=== PATIENT | female | born 1985 | race Caucasian/White ===

== ENCOUNTER 2017-03-12 14:58 | Emergency (ER) | payer SELFPAY ==
[2017-03-12] MEDS ORDERED: KETOROLAC TROMETHAMINE 30 MG/ML VIAL IV ONE (15:20)
[2017-03-12 15:24] LABS: Hematocrit 42.7 % (37.0-47.0); Hemoglobin 14.9 gm/dL (12.5-16.0); Mean Cell Volume 87.1 fl (78-100); Mean Corpuscular Hemoglobin 30.4 pg (27-31); Mean Corpuscular Hgb Conc 34.9 g/dl (32-36); Mean Platelet Volume 10.7 fl (6.0-9.5); Neutrophil # 3.4 K/mm3 (1.3-6.0); Neutrophil % 53.4 % (42-75.0); Platelet Count 209 K/mm3 (150-450); Red Cell Distribution Width 12.8 % (11.5-14.0); White Blood Count 6.4 K/mm3 (4.0-10.5)
[2017-03-12] MEDS ORDERED: KETOROLAC TROMETHAMINE 30 MG/ML VIAL ONE (15:24)
[2017-03-12 15:40] LABS: ALT 52 U/L (19-67); AST 32 U/L (0-48); Alkaline Phosphatase * 110 U/L (50-170); Anion Gap 7.9 mmol/L (6.8-13.8); BUN/Creatinine Ratio 14.9 (9.0-21.6); Bilirubin, Total 0.9 mg/dL (0.0-1.1); Blood Urea Nitrogen 14 mg/dL (3-23); Ca. Corrected For Albumin 8.7 mg/dL (8.4-10.2); Carbon Dioxide 27.7 mmol/L (24-32.6); Chloride 104 mmol/L (97-106); Glucose * 97 mg/dL (70-110); Potassium 3.6 mmol/L (3.4-4.6); Sodium 136 mmol/L (132-142); Total Protein 8.1 gm/dL (6.2-8.2); Troponin I Less than 0.017 ng/ml (0.00-0.10)
--- NOTE | 2017-03-12 15:45 | ERNOTE ---
Chest Pain/Cardiac HPI Date of Service: 03/12/17 Chief Complaint: Chest Pain Time Seen by Provider: 03/12/17 15:09 Source: patient, RN notes reviewed Exam Limitations: no limitations Immunizations: IMMUNIZATION HX Immunizations Up to Date Yes History of Influenza Vaccine No Allergies/Adverse Reactions: Allergies sumatriptan [From Imitrex] Allergy (Verified 03/12/17 15:08) sumatriptan succinate [From Imitrex] Allergy (Verified 03/12/17 15:08) Home Medications: HOME MEDICATIONS NK [No Home Medication] 03/12/17 [Last Taken Unknown] Narrative: 32 year old female presents to the ED with chest pain that has been intermittent for 2 weeks. The pain is worse today. It is mostly in the right chest, but she also reports tenderness in her left breast. She has a history of colorectal cancer and is concerned that the cancer has returned in her lungs or breast, causing the pain. Timing: getting worse, intermittent Severity/Quality: aching Chest Pain Radiation: no radiation Activities at Onset: none Modifying Factors - Improves: Present: nothing. Absent: breathing, rest Modifying Factors - Worsens: Present: exercise Nitro Today/Relief: no nitro taken today Aspirin Treatment Today: no aspirin today Prior Chest Pain/Cardiac Workup: Reports: no prior cardiac workup. Denies: prior chest pain Prior Treatment: Denies: recently seen Review of Systems - Review of Systems Constitutional: Absent: recent illness, fever EYE: Present: no symptoms reported ENT: Absent: nose congestion, sore throat Respiratory: Absent: shortness of breath, cough Cardiology: Present: chest pain. Absent: palpitations, syncope, edema Gastrointestinal/Abdominal: Absent: nausea, vomiting, abdominal pain Genitourinary: Present: no symptoms reported Musculoskeletal: Absent: neck pain, joint pain, joint swelling Skin: Absent: rash, lesions Neurological: Absent: headache, dizziness/light-headedness Endocrine: Present: no symptoms reported Hematologic/Lymphatic: Absent: easy bruising, easy bleeding Psych: Absent: anxiety, depressed - Patient's Past Medical History Patient History - Medical: No pertinent hx Patient History - Cardiac/Respiratory: No pertinent hx Patient History - Cancer: Colon Patient History - Surgical Procedures: Colon Resection - with ileostomy and reversal, Other - vaginal surgery Patient History - Other: None - Social History Living Situations: home Abuse History: No History of abuse Psych History: No pertinent hx Smoking Status: Current every day smoker Cigarettes Packs Per Day: 1 Alcohol Use: none Drug Use: none - Immunizations Immunizations Up to Date: Yes History of Influenza Vaccine: No Physical Exam - Physical Exam General Appearance: Present: wd/wn, alert, no apparent distress Head Exam: Present: normal inspection Eye Exam: Normal inspection: bilateral Neck: Present: normal inspection, nontender, supple Respiratory: Present: no respiratory distress, normal breath sounds, no accessory muscle use, chest nontender, lungs clear Cardiovascular/Chest: Present: regular rate, rhythm, no murmur, normal peripheral pulses Gastrointestinal/Abdominal: Present: nontender, nondistended, soft Extremity Exam: Present: normal inspection, no edema Neurological Exam: Present: alert, oriented, normal mood/affect Skin Exam: Present: normal color, warm/dry ED Progress - Results and Orders Patient's Lab Results:: I have reviewed the patient's lab results. - Vital Signs Patient's Vital Signs:: I have reviewed the patient's vital signs. Vital Signs: Vital Signs 03/12/17 03/12/17 03/12/17 15:04 15:28 15:29 Temperature 36.6 C Pulse Rate 57 L 50 L 56 L Respiratory 12 13 Rate Blood Pressure 133/72 127/86 O2 Sat by Pulse 100 100 Oximetry - EKG EKG: other - Sinus bárbara EKG read: Reviewed by me - X-Ray X-Ray #1 X-Ray: chest Interpretation: Interp. by me X-ray Comments: No acute cardiopulmonary process noted - Progress/Reassessment Chief Complaint: Chest Pain Departure Clinical Impression: Chest wall pain - Departure Disposition: Home Follow Up Needed Condition: Good Instructions: Chest Wall Pain, [id number] Additional Instructions: Ibuprofen for pain Follow up with your doctor if breast pain continues Stop smoking
[2017-03-12 16:12] VITALS: BP 117/56
== END 2017-03-12 16:37 | disposition home or self-care (01) ==
LOC: ER 14:58
DX: R07.89 Other chest pain (principal); F17.210 Nicotine dependence, cigarettes, uncomplicated

== ENCOUNTER 2018-09-08 12:36 | Inpatient (IN) ==
--- NOTE | 2018-09-08 12:58 | ERNOTE ---
Abdominal HPI - Narrative Date of Service: 09/08/18 - General Chief Complaint: Abdominal Pain Time Seen by Provider: 09/08/18 12:57 Source: patient Exam Limitations: no limitations - Immun/Allergies/Home Medications Immunizatons: IMMUNIZATION HX Immunizations Up to Date Yes History of Influenza Vaccine No Hx Pneumococcal Vaccination No Allergies/Adverse Reactions: Allergies sumatriptan succinate [From Imitrex] Allergy (Severe, Verified 09/08/18 12:55) Swelling of Tongue Home Medications: HOME MEDICATIONS Albuterol Sulfate [Proair Hfa] 1 - 2 puff INHALATION Q4H PRN #1 inhaler 02/04/18 [Last Taken Unknown] - Pain Score Pain Score #1 Pain Score: 10 Abdominal Pain Onset Location: periumbilical, generalized abdomen Pain Radiation: back - History of Present Illness Narrative: The patient is a 33 year old female who presents for abdominal pain which has been present since 0500 this am. There are associated symptoms of nausea with vomiting. The patient reports generalized abdominal pain, 10/10. There are no alleviating factors. There are no aggravating factors. Previous treatments have included: none. The past medical history includes: colon and rectal ca. Patient reports last colonoscopy 3 years ago. The social history is positive for current tobacco use. The patient has had no ill contacts. Patient states this am began with abdominal pain and then had nausea with vomiting, several episodes. Review of Systems - Review of Systems Constitutional: Present: chills, fatigue. Absent: fever EYE: Present: no symptoms reported ENT: Present: no symptoms reported. Absent: ear pain, nasal drainage, sore throat Respiratory: Present: no symptoms reported. Absent: shortness of breath, cough Cardiology: Present: no symptoms reported. Absent: chest pain Gastrointestinal/Abdominal: Present: nausea, vomiting, abdominal pain. Absent: diarrhea, constipation Genitourinary: Present: no symptoms reported. Absent: dysuria, decreased urinary output Musculoskeletal: Present: back pain Skin: Present: no symptoms reported. Absent: rash Neurological: Present: no symptoms reported All Other Systems: All systems neg except as marked Medical History (Updated 09/08/18 @ 12:56 by Sugar Schmidt RN) Carcinoma of colon with rectum Social History: Tobacco: Smoking Status: Current every day smoker Physical Exam - Physical Exam General Appearance: Present: wd/wn, alert, severe distress Head Exam: Present: normal inspection Eye Exam: Normal inspection: bilateral Neck: Present: normal inspection Respiratory: Present: no respiratory distress, normal breath sounds, no accessory muscle use, lungs clear Cardiovascular/Chest: Present: regular rate, rhythm, no murmur Gastrointestinal/Abdominal: Present: nondistended, soft, no organomegaly, tenderness - diffuse abdomen, abnormal bowel sounds - hyperactive diffuse, guarding - periumbilical and suprapubic Neurological Exam: Present: alert, oriented, normal mood/affect, no motor/senso ry deficits Skin Exam: Present: normal color, warm/dry Progress - Date and Time Seen: Date and Time: 09/08/18 17:25 Consult with , will review case and return call. Discussed results of testing with patient. Will await for for directed plan of care. Also reviewed with patient abnormal liver and pancreas lesions. Patient states will follow up with additional testing as needed. 09/08/18 18:13 present to evaluate patient. 09/08/18 19:40 After evaluation will admit for SBO. NG placement in ER and then to xray prior to floor admission. - Results and Orders Patient's Lab Results:: I have reviewed the patient's lab results. - Vital Signs Patient's Vital Signs:: I have reviewed the patient's vital signs. Vital Signs: Vital Signs 09/08/18 12:51 Temperature 35.8 C L Pulse Rate 70 Respiratory Rate 24 H Blood Pressure 123/91 H O2 Sat by Pulse Oximetry 99 - X-Ray X-Ray #1 X-Ray: abdomen Interpretation: Reviewed by me X-ray Comments: IMPRESSION: 1. NONSPECIFIC BOWEL GAS PATTERN Electronically signed by Loco Herrera M.D.. - CT/Ultrasound CT/Ultrasound Narrative: IMPRESSION: 1. CT findings suggestive of small bowel obstruction, with transition point at the distal segment near the terminal ileum. 2. No evidence for perforation or intra-abdominal/pelvic abscess. 3. Focal parenchymal prominence of the body of the pancreas, which is somewhat equivocal but consider further imaging evaluation by MRI. Correlate clinically for acute pancreatic process such as pancreatitis. There is a tiny peripheral hyperenhancing lesion at the right hepatic lobe, which can also be characterized by MRI of the abdomen without and with contrast, on a nonemergent basis. 4. Additional comments and details are as above. Ordering provider KG Camara was informed regarding the above results by telephone on 09/08/2018 5:18 PM. - Progress/Reassessment Chief Complaint: Abdominal Pain Departure Clinical Impression: Small bowel obstruction - Departure Disposition: Still a patient Condition: Fair
[2018-09-08] MEDS ORDERED: MORPHINE SULFATE 4 MG/ML SYRG IV ONE ×2 (13:08→17:43)
[2018-09-08] MEDS ORDERED: ONDANSETRON HCL/PF 2 MG/ML VIAL IV ONE ×2 (13:08→17:43)
[2018-09-08 13:22] LABS: Hematocrit 46.7 % (37.0-47.0); Hemoglobin 16.5 gm/dL (12.5-16.0); Mean Cell Volume 87.9 fl (78-100); Mean Corpuscular Hemoglobin 31.1 pg (27-31); Mean Corpuscular Hgb Conc 35.3 g/dl (32-36); Mean Platelet Volume 10.7 fl (8-12.5); Neutrophil # 11.3 K/mm3 (1.3-6.0); Neutrophil % 86.3 % (42-75.0); Platelet Count 248 K/mm3 (150-450); Red Blood Count 5.31 M/mm3 (4.2-5.4); Red Cell Distribution Width 12.8 % (11.5-14.0); White Blood Count 13.1 K/mm3 (4.0-10.5)
[2018-09-08 13:37] LABS: ALT 38 U/L (19-67); AST 20 U/L (0-48); Albumin * 4.2 gm/dl (3.4-5.0); Alkaline Phosphatase * 115 U/L (50-170); Amylase * 62 U/L (25-115); BUN/Creatinine Ratio 13.5 (9.0-21.6); Bilirubin, Total 0.8 mg/dL (0.0-1.1); Blood Urea Nitrogen 15 mg/dL (3-23); Ca. Corrected For Albumin 9.3 mg/dL (8.4-10.2); Calcium * 9.8 mg/dL (7.9-10.9); Carbon Dioxide 22.7 mmol/L (24-32.6); Chloride 103 mmol/L (97-106); Glucose * 117 mg/dL (70-110); Lipase 54 U/L (73-393); Potassium 3.7 mmol/L (3.4-4.6); Sodium 140 mmol/L (132-142); Total Protein 8.4 gm/dL (6.2-8.2)
[2018-09-08] MEDS ORDERED: NORMAL SALINE 1,000 ML IV PRN (13:40)
[2018-09-08] MEDS ORDERED: DIATRIZOATE MEGLUMINE, SODIUM 30 ML BTL PO ONE (13:50)
[2018-09-08 15:09] LABS: Urine Appearance Slightly Cloudy (CLEAR); Urine Bacteria TRACE; Urine Bilirubin Negative (NEGATIVE); Urine Blood Negative /ul (NEGATIVE); Urine Color Dark Yellow; Urine Ketone 5 mg/dL (NEGATIVE); Urine Nitrite Negative (NEGATIVE); Urine Protein Negative (NEGATIVE); Urine RBC None Seen /hpf (0-5); Urine Specific Gravity 1.015 SP.GR. (1.005-1.010); Urine Urobilinogen Normal (NORMAL); Urine WBC None Seen /hpf (0-5); Urine pH 8.5 pH (5.0-7.0)
[2018-09-08] MEDS ORDERED: ALBUTEROL SULFATE 200 PUFF INHALER IH PRN (19:29)
--- NOTE | 2018-09-08 20:02 | HP ---
Chief Complaint - Chief Complaint Date of Service: 09/08/18 Time of Service: 19:44 Chief Complaint: abdominal pain and vomiting History of Present Illness: She developed lower abdominal pain after eating a large amount of raw vegetables yesterday. The pain continued and today she vomited persistently at least 12 times prior to presenting to the emergency room. Initial abdominal x-rays were nonspecific and a CT scan was ordered. CT scan shows dilated small bowel with a transition point in the terminal ileum. There is solid material in the distal small bowel. 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 Initially she had neoadjuvant chemotherapy and radiation therapy followed by an attempted laparoscopic converted to open resection. There were anastomotic problems and the operation was converted to an open procedure. Postoperatively she had a stormy course. Her wound was packed open until it healed. She developed a rectovaginal fistula. She underwent 6 months of chemotherapy. In May 2012 she had a laparotomy with lysis of adhesions, takedown of colovaginal fistula, and redo of the coloanal anastomosis. She had an ileostomy placed which was then later reversed. She is done fairly well since that time. Her last recorded visit with oncology was in 2014. She has not had a follow-up colon exam. She does not remember her last pelvic exam. Medical History (Updated 09/08/18 @ 12:56 by Sugar Schmidt RN) Carcinoma of colon with rectum Social History: (Last Reviewed 09/08/18 @ 19:43 by David Blancas MD) Tobacco: Smoking Status: Current every day smoker Review Of Systems (GEN) - Review of Systems Generalized/Overall Review: Absent: Chills, Fever EENTM: Present: No Symptoms Reported Respiratory: Absent: Cough, Shortness of Breath Cardiac: Present: Other - She gets occasional pressure in the left chest but this lasts all day. She is apparently had a negative cardiac work-up. Absent: Palpitations Abdominal: Present: Vomiting, Abdominal Pain Genitourinary: Present: Nocturia - Gets up at least twice. She no longer menstruates after her radiation but does have occasional pink spotting. Absent: Burning, Frequency Musculoskeletal: Present: No Symptoms Reported Neurological: Present: No Symptoms Reported Skin: Present: Rash - Small area of rash left upper arm for the last several days Endocrine: Present: No Symptoms Reported Immunizations: IMMUNIZATION HX Immunizations Up to Date Yes History of Influenza Vaccine No Hx Pneumococcal Vaccination No Allergies/Adverse Reactions: Allergies Allergy/AdvReac Type Severity Reaction Status Date / Time sumatriptan succinate Allergy Severe Swelling Verified 09/08/18 12:55 [From Imitrex] of Tongue Home Medications: HOME MEDICATIONS Albuterol Sulfate [Proair Hfa] 1 - 2 puff INHALATION Q4H PRN #1 inhaler 02/04/18 [Last Taken Unknown] Exam - Exam Vital Signs: Vital Signs - Last Taken Temp 36.0 C 09/08/18 17:51 Pulse 58 L 09/08/18 17:51 Resp 18 09/08/18 17:51 BP 128/84 09/08/18 17:51 Pulse Ox 99 09/08/18 17:51 Constitutional: Present: Alert, Oriented x3, Cooperative, Well nourished, Mild distress ENT Exam: Present: normal ENT inspection, other - Tongue piercing, Eye Exam: bilateral eye: normal inspection Neck: Present: full range of motion, normal inspection Back Exam: Present: normal inspection Breasts: Present: Exam deferred Respiratory: Present: lungs clear Cardiovascular/Chest: Present: normal peripheral pulses, regular rate, rhythm, no murmur Abdomen: Present: no bowel sounds - Healed midline incision and right lower quadrant incision from her ileostomy. No obvious hernias. She is mildly tender diffusely but mostly in the lower midline. 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, normal cerebellar test, no motor/sensory deficits, alert Appearance: Present: appropriate appearance, appropriate insight, no memory impairment Eye contact: Present: cooperative, good eye contact, normal speech Thoughts: Present: normal thought pattern Diagnostic Studies: Abnormal Lab Results 09/08/18 09/08/18 Range/Units 13:15 13:15 WBC 13.1 H (4.0-10.5) K/mm3 Hgb 16.5 H (12.5-16.0) gm/dL MCH 31.1 H (27-31) pg Immature Gran # (Auto) 0.04 H (0.000-0.0310) K/mm3 Neutrophils % 86.3 H (42-75.0) % Lymphocytes % 9.4 L (20-51) % Neutrophils # 11.3 H (1.3-6.0) K/mm3 Lymphocytes # 1.23 L (1.5-3.5) k/mm3 Carbon Dioxide 22.7 L (24-32.6) mmol/L Anion Gap 18.0 H (6.8-13.8) mmol/L Random Glucose 117 H (70-110) mg/dL Total Protein 8.4 H (6.2-8.2) gm/dL Lipase 54 L (73-393) U/L Laboratory Results WBC 13.1 K/mm3 (4.0-10.5) H 09/08/18 13:15 RBC 5.31 M/mm3 (4.2-5.4) 09/08/18 13:15 Hgb 16.5 gm/dL (12.5-16.0) H 09/08/18 13:15 Hct 46.7 % (37.0-47.0) 09/08/18 13:15 MCV 87.9 fl (78-100) 09/08/18 13:15 MCH 31.1 pg (27-31) H 09/08/18 13:15 MCHC 35.3 g/dl (32-36) 09/08/18 13:15 RDW 12.8 % (11.5-14.0) 09/08/18 13:15 Plt Count 248 K/mm3 (150-450) 09/08/18 13:15 MPV 10.7 fl (8-12.5) 09/08/18 13:15 Immature Gran % (Auto) 0.30 % (0.001-0.429) 09/08/18 13:15 Immature Gran # (Auto) 0.04 K/mm3 (0.000-0.0310) H 09/08/18 13:15 86.3 % (42-75.0) H 09/08/18 13:15 9.4 % (20-51) L 09/08/18 13:15 3.4 % (0.0-9) 09/08/18 13:15 0.3 % (0.0-3.0) 09/08/18 13:15 0.3 % (0.0-1.0) 09/08/18 13:15 Nucleated RBC % 0.0 k/mm3 (0-1) 09/08/18 13:15 11.3 K/mm3 (1.3-6.0) H 09/08/18 13:15 1.23 k/mm3 (1.5-3.5) L 09/08/18 13:15 0.4 k/mm3 (0.0-1.0) 09/08/18 13:15 0.0 k/mm3 (0.0-0.7) 09/08/18 13:15 Absolute Basophils 0.0 k/mm3 (0.0-0.1) 09/08/18 13:15 Sodium 140 mmol/L (132-142) 09/08/18 13:15 140 mmol/L (130-142) 09/08/18 13:15 Potassium 3.7 mmol/L (3.4-4.6) 09/08/18 13:15 Chloride 103 mmol/L (97-106) 09/08/18 13:15 Carbon Dioxide 22.7 mmol/L (24-32.6) L 09/08/18 13:15 18.0 mmol/L (6.8-13.8) H 09/08/18 13:15 BUN 15 mg/dL (3-23) 09/08/18 13:15 1.11 mg/dL (0.4-1.4) 09/08/18 13:15 Est GFR (Non-Af Amer) 60 mL/min (60-130) 09/08/18 13:15 13.5 (9.0-21.6) 09/08/18 13:15 117 mg/dL (70-110) H 09/08/18 13:15 Calcium 9.8 mg/dL (7.9-10.9) 09/08/18 13:15 Calcium Adj for Albumin 9.3 mg/dL (8.4-10.2) 09/08/18 13:15 0.8 mg/dL (0.0-1.1) 09/08/18 13:15 AST 20 U/L (0-48) 09/08/18 13:15 ALT 38 U/L (19-67) 09/08/18 13:15 115 U/L (50-170) 09/08/18 13:15 C-Reactive Prot, Quant Less than 0.2 mg/dL (0.0-0.9) 09/08/18 13:15 8.4 gm/dL (6.2-8.2) H 09/08/18 13:15 4.2 gm/dl (3.4-5.0) 09/08/18 13:15 Amylase 62 U/L (25-115) 09/08/18 13:15 54 U/L (73-393) L 09/08/18 13:15 Dark yellow 09/08/18 14:55 Slightly cloudy (CLEAR) 09/08/18 14:55 8.5 pH (5.0-7.0) 09/08/18 14:55 Ur Specific [place] 1.015 SP.GR. (1.005-1.010) 09/08/18 14:55 Negative mg/dL (NEGATIVE) 09/08/18 14:55 Negative mg/dL (NEGATIVE) 09/08/18 14:55 5 mg/dL (NEGATIVE) 09/08/18 14:55 Negative /ul (NEGATIVE) 09/08/18 14:55 Negative (NEGATIVE) 09/08/18 14:55 Negative mg/dl (NEGATIVE) 09/08/18 14:55 Normal EU/dl (NORMAL) 09/08/18 14:55 Ur Leukocyte Esterase Negative /ul (NEGATIVE) 09/08/18 14:55 None seen /hpf (0-5) 09/08/18 14:55 None seen /hpf (0-5) 09/08/18 14:55 Ur Epithelial Cells 0-5 /hpf (0-5) 09/08/18 14:55 Trace (NONE) 09/08/18 14:55 No culture indicated 09/08/18 14:55 Urine HCG, Qual Negative (NEGATIVE) 09/08/18 14:[address] scan images and report were reviewed. There is a partial distal small bowel obstruction with a transition point in the right lower quadrant. Assessment/Plan - Assessment/Plan (1) Partial small bowel obstruction Assessment: Her previous surgeries and radiation therapy would predispose her to adhesions. There appears to be some solid material in the small bowel prior to the transition point which may be the vegetable she ate yesterday. A nonoperative trial of NG suction and IV hydration would be in order. SCDs and ambulation will be used for VTE prophylaxis. Medication is been ordered for pain and nausea. She will be reevaluated for passage of the contrast material in the morning. Problem: Acute
[2018-09-08] MEDS: HYDROmorphone HCL 1 MG/ML DISP.SYRIN IV PRN (20:47)
[2018-09-08] MEDS: ONDANSETRON HCL/PF 2 MG/ML VIAL IV PRN (20:49)
[2018-09-08] MEDS: DEXTROSE 5%-0.5 NORMAL SALINE 1,000 ML IV PRN (21:01)
[2018-09-08] MEDS: PANTOPRAZOLE SODIUM 40 MG in NORMAL SALINE 100 ML IV SCH (21:18)
[2018-09-09] MEDS: HYDROmorphone HCL 1 MG/ML DISP.SYRIN IV PRN ×4 (00:05→20:26)
[2018-09-09] MEDS: ONDANSETRON HCL/PF 2 MG/ML VIAL IV PRN ×2 (02:51→14:58)
[2018-09-09] MEDS: DEXTROSE 5%-0.5 NORMAL SALINE 1,000 ML IV PRN (05:15)
[2018-09-09 06:19] LABS: Anion Gap 11.9 mmol/L (6.8-13.8); BUN/Creatinine Ratio 12.4 (9.0-21.6); Calcium * 8.5 mg/dL (7.9-10.9); Carbon Dioxide 27.3 mmol/L (24-32.6); Estimated Creat Clear 87.4; Potassium 3.2 mmol/L (3.4-4.6)
[2018-09-09] MEDS ORDERED: ALBUTEROL SULFATE 2.5 MG/0.5 ML VIAL.NEB IH PRN (07:47)
[2018-09-09] MEDS ORDERED: KETOROLAC TROMETHAMINE 15 MG/ML VIAL IV PRN (09:42)
[2018-09-09 10:06] LABS: Hematocrit 42.7 % (37.0-47.0); Hemoglobin 14.5 gm/dL (12.5-16.0); Mean Corpuscular Hemoglobin 30.9 pg (27-31); Mean Platelet Volume 11.1 fl (8-12.5); Neutrophil # 6.5 K/mm3 (1.3-6.0); Neutrophil % 68.6 % (42-75.0); Platelet Count 208 K/mm3 (150-450); Red Blood Count 4.69 M/mm3 (4.2-5.4); Red Cell Distribution Width 13.2 % (11.5-14.0); White Blood Count 9.5 K/mm3 (4.0-10.5)
--- NOTE | 2018-09-09 10:06 | PN ---
Subjective - Date and Time Seen Date: 09/09/18 Time: 10:01 Objective Objective Narrative: Her vital signs have remained normal. She has had 300 mL of the NG tube. She continues to have crampy low midline abdominal discomfort. She will be comfortable for a while and then get a sharp pain lasts for a minute or so. The IV Dilaudid helps with this. She complains of a headache this morning. She has not passed gas or moved her bowels. The chest x-ray for NG placement from last night was read this morning, and suggests tube advancement. - Review of Systems Generalized/Overall Review: Denies: Chills, Fever EENTM: Reports: Other - She has some discomfort in the posterior pharynx from the NG tube Respiratory: Denies: Cough, Shortness of Breath Cardiac: Denies: Chest Pain Abdominal: Reports: Other - Crampy lower abdominal pain, does not hurt to cough Genitourinary Symptoms: Reports: No Symptoms Reported Musculoskeletal Complaints: Reports: No Symptoms Reported Neurological: Reports: No Symptoms Reported Skin: Reports: No Symptoms Reported - Vitals Vitals: Last Vital Signs Temp 36.2 C 09/09/18 06:40 Pulse 60 09/09/18 06:40 Resp 18 09/09/18 06:40 BP 98/60 09/09/18 06:40 Pulse Ox 97 09/09/18 06:40 - Abnormal Lab Findings Abnormal Lab Findings: Abnormal Lab Results 09/08/18 09/08/18 09/09/18 Range/Units 13:15 13:15 05:40 WBC 13.1 H (4.0-10.5) K/mm3 Hgb 16.5 H (12.5-16.0) gm/dL MCH 31.1 H (27-31) pg Immature Gran # (Auto) 0.04 H (0.000-0.0310) K/mm3 Neutrophils % 86.3 H (42-75.0) % Lymphocytes % 9.4 L (20-51) % Neutrophils # 11.3 H (1.3-6.0) K/mm3 Lymphocytes # 1.23 L (1.5-3.5) k/mm3 Potassium 3.2 L (3.4-4.6) mmol/L Carbon Dioxide 22.7 L (24-32.6) mmol/L Anion Gap 18.0 H (6.8-13.8) mmol/L Random Glucose 117 H 119 H (70-110) mg/dL Total Protein 8.4 H (6.2-8.2) gm/dL Lipase 54 L (73-393) U/L - Exam Constitutional: Present: Alert, Oriented x3, Cooperative, Mild distress ENT Exam: Present: normal ENT inspection Neck: Present: full range of motion, normal inspection Respiratory: Present: no respiratory distress Cardiovascular/Chest: Present: regular rate, rhythm Abdomen: Present: other - It does not hurt when she coughs. 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 The NG tube was advanced and resecured. Will obtain a flat and upright abdomen to assess for contrast passage. We will continue IV fluids and encourage ambulation. Will also recheck CBC - Problems/Diagnosis (1) Partial small bowel obstruction Problem: Acute
[2018-09-09] MEDS: POTASSIUM CHLORIDE 20 MEQ in DEXTROSE 5%-0.5 NORMAL SALINE 990 ML IV SCH ×2 (10:29→17:04)
[2018-09-09] MEDS: NICOTINE 21 MG PATC TD SCH (12:52)
[2018-09-09] MEDS: PANTOPRAZOLE SODIUM 40 MG in NORMAL SALINE 100 ML IV SCH (18:36)
[2018-09-10] MEDS: POTASSIUM CHLORIDE 20 MEQ in DEXTROSE 5%-0.5 NORMAL SALINE 990 ML IV SCH ×2 (00:43→07:39)
[2018-09-10] MEDS: HYDROmorphone HCL 1 MG/ML DISP.SYRIN IV PRN (00:47)
[2018-09-10 07:13] LABS: Anion Gap 12.8 mmol/L (6.8-13.8); BUN/Creatinine Ratio 8.2 (9.0-21.6); Calcium * 8.8 mg/dL (7.9-10.9); Carbon Dioxide 30.3 mmol/L (24-32.6); Estimated Creat Clear 79.4; Potassium 4.1 mmol/L (3.4-4.6)
[2018-09-10] MEDS: NICOTINE 21 MG PATC TD SCH (11:30)
--- NOTE | 2018-09-10 13:09 | DS ---
(1) Partial small bowel obstruction Problem: Acute (2) Hypokalemia due to excessive gastrointestinal loss of potassium Problem: Resolved Description of Stay: She was initially placed in observation bed. A nasogastric tube was inserted and she was kept at n.p.o. status with IV hydration. SCDs and ambulation were used for VTE prophylaxis. The following morning repeat x-rays continued to show non-passage of the CT contrast and her potassium was found to be low. Potassium was added to her IV fluids. She was switched to acute care as her treatment would have spanned 2 midnights. She did pass gas and had bowel movements overnight. Repeat x-rays today show contrast in the colon. Her potassium returned to normal. She tolerated clear liquids with the nasogastric tube clamped, and then regular diet after the nasogastric tube was removed. She has very minimal abdominal discomfort and no peritoneal signs on exam. She is discharged home with instructions to maintain a soft or liquid diet and advance as able. She should avoid large amounts of raw vegetables which apparently precipitated this incident. She was encouraged to establish with a primary care physician for regular follow-up and care. She may call with questions or concerns. Procedures Performed: none Results and Findings: Lab Pending Results 09/08/18 13:15: WBC 13.1 H, RBC 5.31, Hgb 16.5 H, Hct 46.7, MCV 87.9, MCH 31.1 H, MCHC 35.3, RDW 12.8, Plt Count 248, MPV 10.7, Immature Gran % (Auto) 0.30, Immature Gran # (Auto) 0.04 H, Neutrophils % 86.3 H, Lymphocytes % 9.4 L, Monocytes % 3.4, Eosinophils % 0.3, Basophils % 0.3, Nucleated RBC % 0.0, Neutrophils # 11.3 H, Lymphocytes # 1.23 L, Monocytes # 0.4, Eosinophils # 0.0, Absolute Basophils 0.0 09/08/18 13:15: Sodium 140, Plasma Sodium 140, Potassium 3.7, Chloride 103, Carbon Dioxide 22.7 L, Anion Gap 18.0 H, BUN 15, Creatinine 1.11, Est GFR (Non- Af Amer) 60, BUN/Creatinine Ratio 13.5, Random Glucose 117 H, Calcium 9.8, Calcium Adj for Albumin 9.3, Total Bilirubin 0.8, AST 20, ALT 38, Alkaline Phosphatase 115, C-Reactive Prot, Quant Less than 0.2, Total Protein 8.4 H, Albumin 4.2, Amylase 62, Lipase 54 L 09/08/18 14:55: Urine HCG, Qual Negative 09/08/18 14:55: Urine Color Dark yellow, Urine Appearance Slightly cloudy, Urine pH 8.5, Ur Specific [place] 1.015, Urine Protein Negative, Urine Glucose (UA) Negative, Urine Ketones 5, Urine Blood Negative, Urine Nitrate Negative, Urine Bilirubin Negative, Urine Urobilinogen Normal, Ur Leukocyte Esterase Negative, Urine RBC None seen, Urine WBC None seen, Ur Epithelial Cells 0-5, Urine Bacteria Trace, Urine Culture Comments No culture indicated 09/09/18 05:40: Sodium 141, Plasma Sodium 141, Potassium 3.2 L, Chloride 105, Carbon Dioxide 27.3, Anion Gap 11.9, BUN 11, Creatinine 0.89, Est GFR (Non-Af Amer) 78 D, BUN/Creatinine Ratio 12.4, Random Glucose 119 H, Calcium 8.5 09/09/18 : WBC 9.5 D, RBC 4.69, Hgb 14.5, Hct 42.7, MCV 91.0, MCH 30.9, MCHC 34.0, RDW 13.2, Plt Count 208, MPV 11.1, Immature Gran % (Auto) 0.30, Immature Gran # (Auto) 0.03, Neutrophils % 68.6, Lymphocytes % 21.2, Monocytes % 7.9, Eosinophils % 1.7, Basophils % 0.3, Nucleated RBC % 0.0, Neutrophils # 6.5 H, Lymphocytes # 2.02, Monocytes # 0.8, Eosinophils # 0.2, Absolute Basophils 0.0 09/10/18 06:50: Sodium 144 H, Plasma Sodium 144 H, Potassium 4.1 D, Chloride 105, Carbon Dioxide 30.3, Anion Gap 12.8, BUN 8, Creatinine 0.98, Est GFR (Non- Af Amer) 69, BUN/Creatinine Ratio 8.2 L, Random Glucose 101, Calcium 8.8 Discharge Location: Home Disposition: Home self-care Condition: Good Discharge Activity: Activity as tolerated Discharge Diet: Low Fiber Problem Oriented Discharge Instructions to Patient/Family: Small Bowel Obstruction, [id number] Complete Home Medications List: Complete Home Medication List: Albuterol Sulfate [Albuterol Sulfate 2.5 MG/0.5ML] 1 vial INHALATION Q4H PRN 09/08/18
[2018-09-10 13:37] VITALS: BP 116/69
== END 2018-09-10 13:55 | disposition home or self-care (01) | DRG 390 ==
LOC: MS 12:36 → ER 12:36 → MS 19:08
PROVIDERS: ADMIT Surgery; ATTEND Surgery
DX: R51 Headache; K91.31 Postprocedural partial intestinal obstruction; E87.6 Hypokalemia; Z85.038 Personal history of other malignant neoplasm of large intestine; F17.210 Nicotine dependence, cigarettes, uncomplicated
CPT/HCPCS: 36415; 71010; 71045; 74019; 74020; 74177; 80048; 80053; 81001; 82150; 83690; 84703; 85025; 86140; 96361; 96365; 96366; 96367; 96375; 96376; 99285; G0378; J2405; Q9963; Q9967